=== PATIENT | female | born 1995 | race American Indian/Alaskan Native ===

== ENCOUNTER 2018-11-07 21:19 | Emergency (ER) | payer MEDICAID ==
--- NOTE | 2018-11-07 21:30 | Emergency Department Report ---
Blank Doc - Documentation Documentation: This is a 23-year-old female that presents with left ankle and foot pain s/p f all. This initial assessment/diagnostic orders/clinical plan/treatment(s) is/are subject to change based on patient's health status, clinical progression and re- assessment by fellow clinical providers in the ED. Further treatment and workup at subsequent clinical providers discretion. Patient/guardians urged not to elope from the ED as their condition may be serious if not clinically assessed a nd managed. Initial orders include: 1- Patient sent to [facility] for further evaluation and treatment 2- xray
[2018-11-07 21:31] VITALS: BP 107/62
--- NOTE | 2018-11-07 22:44 | XRay Report ---
PROCEDURE: XR ANKLE 2V LT TECHNIQUE: AP and lateral views of the left ankle HISTORY: left ankle pain s/p fall COMPARISONS: None . FINDINGS: There is no evidence for acute fracture or dislocation. Mild soft tissue swelling laterally is noted. No radiopaque foreign bodies are seen. The ankle mortise is intact. Bony mineralization is normal an d joint spaces are maintained. IMPRESSION: No acute bony abnormality noted. Mild soft tissue swelling laterally. This document is electronically signed by Oriana Pollock MD., November 07 2018 10:42:23 PM ET
--- NOTE | 2018-11-07 23:11 | XRay Report ---
PROCEDURE: XR FOOT 2V LT TECHNIQUE: Left foot radiographs, AP and lateral views. HISTORY: pain s/p fall COMPARISONS: None . FINDINGS: Fracture (s) and/or Dislocation(s): None . Alignment: Normal . Joint space(s): Normal . Soft tissues: Normal . Bone mineralization: Normal . Foreign bodies: None . Calcaneal spurring: None . IMPRESSION: Normal Examination . This document is electronically signed by Paula Garnica DO., November 07 2018 11:09:53 PM ET
== END 2018-11-08 01:00 | disposition left against medical advice (07) ==
LOC: ED 21:19
DX: O9A.212 Injury, poisoning and certain other consequences of external causes complicating pregnancy, second trimester (principal); M25.572 Pain in left ankle and joints of left foot; Z3A.26 26 weeks gestation of pregnancy; W10.9XXA Fall (on) (from) unspecified stairs and steps, initial encounter; Y93.89 Activity, other specified; Y92.89 Other specified places as the place of occurrence of the external cause; Y99.8 Other external cause status
CPT/HCPCS: 99283

== ENCOUNTER 2018-12-15 15:54 | Outpatient (CLI) | payer MEDICAID ==
[2018-12-15 16:22] VITALS: BP 117/58
[2018-12-15] MEDS ORDERED: LACTATED RINGERS 1,000 ML IV ONE (17:14)
[2018-12-15] MEDS ORDERED: LACTATED RINGERS 1,000 ML ONE (17:15)
[2018-12-15 18:48] LABS: Bacteria,Urine 2+ /HPF (Negative); Bilirubin,Urine NEG (Negative); Blood,Urine NEG (Negative); Color,Urine Yellow (Yellow); Mucus,Urine FEW /HPF; Protein,Urine <15 mg/dL mg/dL (Negative); Urobilinogen,Urine < 2.0 mg/dL (<2.0)
== END 2018-12-15 19:18 | disposition home or self-care (01) ==
LOC: TRG 15:54
PROVIDERS: ATTEND Obstetrics & Gynecology
DX: O62.9 Abnormality of forces of labor, unspecified (principal); Z3A.31 31 weeks gestation of pregnancy
CPT/HCPCS: 59025; 81001; 96365; J7120

== ENCOUNTER 2019-01-09 12:53 | Outpatient (CLI) | payer MEDICAID ==
[2019-01-09 14:08] LABS: Hemoglobin 11.6 gm/dl (10.1-14.3); Mean Corpuscular HGB Conc 34 % (30-34); Mean Corpuscular Volume 83 fl (79-97); Platelet Count 204 K/mm3 (140-440); Red Blood Count 4.11 M/mm3 (3.65-5.03); Red Cell Distribution Width 14.7 % (13.2-15.2)
[2019-01-09 14:34] LABS: Alanine Aminotransferase 5 units/L (7-56); Uric Acid 4.7 mg/dL (3.5-7.6)
[2019-01-09 14:58] LABS: Bilirubin,Urine NEG (Negative); Blood,Urine NEG (Negative); Color,Urine Straw (Yellow); Protein,Urine <15 mg/dL mg/dL (Negative); Urobilinogen,Urine < 2.0 mg/dL (<2.0)
[2019-01-09 15:14] VITALS: BP 108/60
[2019-01-09] MEDS ORDERED: TYLENOL PO ONE (15:18)
== END 2019-01-09 16:33 | disposition home or self-care (01) ==
LOC: TRG 12:53
PROVIDERS: ATTEND Obstetrics & Gynecology
DX: O47.03 False labor before 37 completed weeks of gestation, third trimester (principal); Z3A.37 37 weeks gestation of pregnancy
CPT/HCPCS: 36415; 59025; 81001; 82565; 83615; 84450; 84460; 84550; 85027

== ENCOUNTER 2019-01-28 12:37 | Outpatient (CLI) | payer MEDICAID ==
[2019-01-28 12:53] VITALS: BP 105/62
--- NOTE | 2019-01-28 15:10 | Progress Note ---
Assessment and Plan A: at 39 6/7 weeks gestation. Reactive NST. BPP 8/8. Normal MERY. Patient perceived movement during exam. P: Discharge patient home with labor precautions and instructions to perform daily movement counting. Keep follow up appointment at [facility] early this week for BPP and office visit. Technique for daily movement counting discussed with patient. Subjective - Subjective Date of service: 01/28/19 Principal diagnosis: at 39 6/7 weeks gestation Interval history: 23 year old presents with complaint of decreased movement today. Patient denies regular contractions, vaginal bleeding, leaking of fluid, falls, or abdominal trauma or pain. Patient reports: contractions, no loss of fluid, no vaginal bleeding Objective - Vital Signs Vital Signs: Vital Signs - 12hr 01/28/19 01/28/19 12:52 14:25 Temperature 98.4 F Pulse Rate 101 H Respiratory 16 Rate Blood Pressure 105/62 - Exam Narrative Exam: BPP 8/8; reactive NST; normal MERY. Abdomen: Present: normal appearance, soft. Absent: distention, tenderness, guarding, rigidity Uterus: Present: normal, fundal height above umbilicus. Absent: bogginess, tenderness FHR: category 1 Uterine Contraction Monitor Mode: External Cervical Dilatation: 3 Cervical Effacement Percentage: 40 station: -3 Uterine Contraction Pattern: Irregular Uterine Contraction Intensity: Mild Extremities: normal
--- NOTE | 2019-01-28 15:42 | Ultrasound Report ---
US OB BPP wo non-stress, US OB limited INDICATION / CLINICAL INFORMATION: BPP. COMPARISON: None available. FINDINGS: Single, viable intrauterine in cephalic presentation. heartbeat 127. Amniotic fluid volume is within normal limits, with a fluid index of 11 cm. Biophysical profile: tone: 2 movements: 2 breathin Amniotic fluid: 2 Total score: 8 IMPRESSION: 1. Single, viable intrauterine , with biophysical profile of 8, which is normal. Signer Name: Kenji Gutierrez MD Signed: 01/28/2019 3:37 PM Workstation Name: [id number]
== END 2019-01-28 14:42 | disposition home or self-care (01) ==
LOC: TRG 12:37
PROVIDERS: ATTEND Obstetrics & Gynecology
DX: O36.8130 Decreased fetal movements, third trimester, not applicable or unspecified (principal); Z3A.39 39 weeks gestation of pregnancy
CPT/HCPCS: 59025; 76815; 76819

== ENCOUNTER 2019-02-01 14:33 | Outpatient (CLI) | payer MEDICAID ==
[2019-02-01 15:11] VITALS: BP 115/63
== END 2019-02-01 15:37 | disposition home or self-care (01) ==
LOC: TRG 14:33
PROVIDERS: ATTEND Obstetrics & Gynecology
DX: O47.1 False labor at or after 37 completed weeks of gestation (principal); Z3A.40 40 weeks gestation of pregnancy
CPT/HCPCS: 59025

== ENCOUNTER 2019-02-02 03:22 | Inpatient (IN) | payer MEDICAID ==
[2019-02-02] MEDS ORDERED: LACTATED RINGERS 1,000 ML ONE (04:18)
[2019-02-02] MEDS ORDERED: AMPICILLIN/NS 2 GM/100 ML 2 GM/100 ML BAG IV ONE (05:19)
[2019-02-02] MEDS ORDERED: BRETHINE IVP PRN (05:19)
[2019-02-02] MEDS ORDERED: MINERAL OIL PO PRN (05:19)
[2019-02-02] MEDS ORDERED: XYLOCAINE 2% INFILTRATI ONE (05:19)
[2019-02-02] MEDS ORDERED: STADOL IV PRN (05:19)
[2019-02-02] MEDS ORDERED: BRETHINE SUB-Q PRN (05:19)
[2019-02-02] MEDS ORDERED: SUBLIMAZE IV PRN (05:19)
[2019-02-02 05:39] LABS: Hematocrit 34.1 % (30.3-42.9); Hemoglobin 11.3 gm/dl (10.1-14.3); Mean Corpuscular HGB Conc 33 % (30-34); Mean Corpuscular Volume 80 fl (79-97); Platelet Count 208 K/mm3 (140-440); Red Blood Count 4.26 M/mm3 (3.65-5.03); Red Cell Distribution Width 15.6 % (13.2-15.2)
[2019-02-02] MEDS: LACTATED RINGERS 1,000 ML IV SCH ×2 (05:40→09:58)
[2019-02-02] MEDS ORDERED: PITOCin/NS 20 UNIT/1000ML DRIP 20 UNITS/1,000 ML BAG IV SCH (06:00)
[2019-02-02] MEDS ORDERED: PITOCin/NS 30 UNIT/500ML 30 UNITS/500 ML BAG IV SCH ×2 (06:00)
[2019-02-02] MEDS ORDERED: NARCAN 0.4 MG/1 ML IV PRN (06:10)
--- NOTE | 2019-02-02 06:33 | History and Physical Report ---
History of Present Illness Date of examination: 02/02/19 Date of admission: 02/02/2019 Chief complaint: My Water broke this morning at 0230; the fluid was clear. History of present illness: Late transfer into care at 24 weeks, course has been uncomplicated. Past History Past Medical History: no pertinent history Past Surgical History: no surgical history Family/Genetic History: diabetes (father and PGF) Social history: no significant social history, single - Obstetrical History Expected Date of Delivery: 01/29/19 Actual Gestation: 40 Week(s) 4 Day(s) : 2 Para: 1 Hx # Term Pregnancies: 1 Number of Living Children: 1 #2 Gender: Female year: 2[age][birth year] Birthweight: 2.863 kg Method of Delivery: Vaginal Gestational age at delivery: 40 Complications: none Medications and Allergies Allergies Allergy/AdvReac Type Severity Reaction Status Date / Time shrimp Allergy Severe Itching Verified 12/15/18 17:20 Home Medications Medication Instructions Recorded Confirmed Last Taken Type Vit-Fe Fumar-FA [ 1 tab PO DAILY 02/02/19 02/02/19 02/01/19 History Vitamin] Active Meds: Active Medications Butorphanol Tartrate (Stadol) 2 mg IV Q2H PRN PRN Reason: Pain , Severe (7-10) Ephedrine Sulfate (Ephedrine Sulfate) 10 mg IV Q2M PRN PRN Reason: Hypotension Fentanyl (Sublimaze) 100 mcg IV Q2H PRN PRN Reason: Labor Pain Oxytocin/Sodium Chloride (Pitocin/Ns 20 Unit/1000ml Drip) 20 units in 1,000 mls @ 125 mls/hr IV DIRECT PREMA Oxytocin/Sodium Chloride (Pitocin/Ns 30 Unit/500ml) 30 units in 500 mls @ 1 mls/hr IV TITR PREMA; Protocol Oxytocin/Sodium Chloride (Pitocin/Ns 30 Unit/500ml) 30 units in 500 mls @ 2 mls/hr IV TITR PREMA; Protocol Lactated Ringer's (Lactated Ringers) 1,000 mls @ 125 mls/hr IV DIRECT PREMA Last Admin: 02/02/19 05:40 Dose: 125 mls/hr Documented by: Ampicillin Sodium (Ampicillin/Ns 2 Gm/100 Ml) 2 gm in 100 mls @ 100 mls/hr IV ONCE ONE; Protocol Stop: 02/02/19 06:18 Last Admin: 02/02/19 05:41 Dose: 100 mls/hr Documented by: Ampicillin Sodium (Ampicillin/Ns 1 Gm/50 Ml) 1 gm in 50 mls @ 100 mls/hr IV Q4HR PREMA; Protocol Mineral Oil (Mineral Oil) 30 ml PO QHS PRN PRN Reason: Constipation Terbutaline Sulfate (Brethine) 0.25 mg SUB-Q ONCE PRN PRN Reason: Hyperstimulation/Hypertonicity Terbutaline Sulfate (Brethine) 0.25 mg IVP ONCE PRN PRN Reason: Hyperstimulation/Hypertonicity Review of Systems All systems: negative - Vital Signs Vital signs: Vital Signs Temp Resp 98.1 F 18 02/02/19 03:55 02/02/19 03:55 Temp Pulse Resp BP Pulse Ox 98.1 F 68 18 113/62 02/02/19 03:55 02/02/19 05:33 02/02/19 03:55 02/02/19 05:33 - Physical Exam Breasts: Positive: normal Cardiovascular: Regular rate Lungs: Positive: Clear to auscultation, Normal air movement Abdomen: Positive: normal appearance, soft, normal bowel sounds Genitourinary (Female): Positive: normal external genitalia, normal perenium Uterus: Positive: enlarged Anus/Rectum: Positive: normal perianal skin Extremities: Positive: normal - Obstetrical FHR: category 1 Uterine Contraction Monitor Mode: External Cervical Dilatation: 3.5 (Scant amount of clear fluid upon exam) Cervical Effacement Percentage: 70 station: 2 Uterine Contraction Pattern: Irregular Uterine Tone Measurement Phase: Resting Uterine Contraction Intensity: Mild Results Result Diagrams: 02/02/19 04:50 Abnormal lab results 02/02/19 Range/Units 04:50 WBC 11.4 H (4.5-11.0) K/mm3 MCH 27 L (28-32) pg RDW 15.6 H (13.2-15.2) % All other labs normal. Assessment and Plan A: IUP @ 40 4/7 Weeks Category I Tracing SROM GBS Positive P: Admit to L&D per Routine Orders GBS Prophylaxis Pitocin Augmentation
[2019-02-02] MEDS ORDERED: NARCAN 2 MG/2 ML IV PRN (09:04)
--- NOTE | 2019-02-02 09:04 | Anesthesia Consultation ---
Anesthesia Consult and Med Hx Date of service: 02/02/19 - Airway Anesthetic Teeth Evaluation: Good ROM Head & Neck: Adequate Mental/Hyoid Distance: Adequate Mallampati Class: Class I Intubation Access Assessment: Good - Pulmonary Exam CTA: Yes - Cardiac Exam Cardiac Exam: RRR - Pre-Operative Health Status ASA Pre-Surgery Classification: ASA2 Proposed Anesthetic Plan: Epidural - Pulmonary Hx Asthma: No COPD: No Hx Pneumonia: No - Cardiovascular System Hx Hypertension: No - Central Nervous System Hx Seizures: No Hx Psychiatric Problems: No - Endocrine Hx Renal Disease: No Hx End Stage Renal Disease: No Hx Hypothyroidism: No Hx Hyperthyroidism: No - Hematic Hx Anemia: No Hx Sickle Cell Disease: No - Other Systems Hx Alcohol Use: No
[2019-02-02] MEDS ORDERED: MARCAINE 0.25% INFILTRATI ONE (09:08)
[2019-02-02] MEDS ORDERED: AMPICILLIN/NS 1 GM/50 ML 1 GM/50 ML BAG IV SCH (09:20)
[2019-02-02] MEDS ORDERED: ZOFRAN ONE (09:49)
[2019-02-02] MEDS ORDERED: DEXMEDETOMIDINE IV ONE (09:49)
[2019-02-02] MEDS ORDERED: fentaNYL-BUPIV 2 MCG/ML-0.125% 200 MCG/100 ML BAG EPIDURAL SCH (10:30)
[2019-02-02] MEDS ORDERED: BENADRYL ONE (10:38)
[2019-02-02] MEDS ORDERED: TORADOL ONE (10:38)
[2019-02-02] MEDS ORDERED: DILAUDID ONE (10:54)
[2019-02-02] MEDS ORDERED: BENADRYL PO PRN (12:11)
[2019-02-02] MEDS ORDERED: LANSINOH TP PRN (12:11)
[2019-02-02] MEDS ORDERED: PHENERGAN PO PRN (12:11)
[2019-02-02] MEDS ORDERED: ZOFRAN IV PRN (12:11)
[2019-02-02] MEDS ORDERED: NORCO 5/325 PO PRN (12:11)
[2019-02-02] MEDS ORDERED: DULCOLAX PR PRN (12:11)
[2019-02-02] MEDS ORDERED: TYLENOL PO PRN (12:11)
[2019-02-02] MEDS ORDERED: TUCKS PAD TP PRN (12:11)
--- NOTE | 2019-02-02 12:18 | Procedure Note ---
OB Delivery Note - Delivery Date of Delivery: 02/02/19 (11:51) Surgeon: JACEY ANDERSON (BRITTANY) Estimated blood loss: <100cc - Vaginal Delivery presentation: vertex Delivery position: OA Intrapartum events: none Delivery induction: none Delivery augmentation: pitocin Delivery monitor: external FHT, external uterine Route of delivery: (11:51) Delivery placenta: spontaneous (11:57) Delivery cord: 3 umbilical vessels Episiotomy: none Delivery laceration: none Anesthesia: epidural Delivery comments: viable female RICK position over intact perineum at 11:51. Vigorous infant placed skin to skin on mothers abdomen. Delayed cord clamping then cut by FOB with my guidance. Spontaneous enciso delivery of intact placenta at 11:57. FF@U-2. Bleeding scant. No tears or lacerations. EBL 50cc. and mother left in stable condition in L&D. - A at 1 minute: 8 at 5 minutes: 9 Infant Gender: Female (2481 grams, 7lbs 11oz, 19.5")
[2019-02-02] MEDS ORDERED: SODIUM CHLORIDE FLUSH SYRINGE 10 ML IV NR (13:00)
[2019-02-02] MEDS ORDERED: MILK OF MAGNESIA PO PRN (22:00)
--- NOTE | 2019-02-02 23:41 | Post Anesthesia Evaluation ---
- Post Anesthesia Evaluation Patient Participated: Yes Airway Patent: Yes Stable Respiratory Function: Yes Nausea/Vomiting: No Temp > 96.8F: Yes Pain Manageable: Yes Adequeate Hydration: Yes Anesthesia Complications: No Block Receding Appropriately: Yes Patient on Ventilator: No
[2019-02-03 01:20] LABS: Hemoglobin 10.2 gm/dl (10.1-14.3)
[2019-02-03] MEDS: IBUPROFEN PO SCH (08:00)
--- NOTE | 2019-02-03 11:28 | Progress Note ---
Assessment and Plan - Patient Problems (1) Status post normal vaginal delivery Current Visit: Yes Status: Acute Plan to address problem: PPD 1 - stable Continue routine orders Discharge to home today Follow-up at [facility] as needed or in 6 weeks for exam Subjective - Subjective Date of service: 02/03/19 Principal diagnosis: PPD #1; s/p Interval history: see H&P and OB Delivery Procedure Note Patient reports: appetite normal, voiding normally, pain well controlled, amb ulating normally, no dizzy ambulation [place]: doing well Objective - Vital Signs Latest vital signs: Vital Signs Temp Pulse Resp BP BP Pulse Ox 02/03/19 10:16 98.3 F 65 18 111/66 98 02/03/19 00:15 98.6 F 76 18 102/69 02/02/19 21:44 98.8 F 78 18 117/73 98 02/02/19 18:15 98.2 F 83 18 104/47 97 02/02/19 14:20 99.2 F 71 16 110/52 110/52 02/02/19 14:05 97.7 F 02/02/19 13:05 90 111/78 02/02/19 12:34 83 112/58 02/02/19 12:06 83 102/55 02/02/19 12:04 90 89/61 02/02/19 12:00 99.5 F 02/02/19 11:34 89 110/56 Intake and Output 02/02/19 02/03/19 02/03/19 23:59 07:59 15:59 Intake Total 300 Balance 300 Intake: Intake, Free Water 300 Other: # Voids Void 3 - Exam Cardiovascular: Present: Regular rate Lungs: Present: Clear to auscultation Abdomen: Present: normal appearance, soft Vulva: both: normal Uterus: Present: normal, firm, fundal height at umbilicus Extremities: Present: normal Comments: scant lochia
--- NOTE | 2019-02-03 11:30 | Discharge Summary ---
Providers - Providers Date of Admission: 02/02/19 06:10 Date of discharge: 02/03/19 Attending physician: AKIRA GARCIA MD Primary care physician: AKIRA GARCIA MD Hospitalization Reason for admission: active labor, IUP at term Delivery: Episiotomy: none Laceration: none Other procedures: none complications: none Discharge diagnosis: IUP at term delivered [place] baby: female Hospital course: Uncomplicated Condition at discharge: Stable Disposition: [place]-01 TO HOME OR SELFCARE - Discharge Diagnoses (1) Status post normal vaginal delivery Status: Acute Plan - Provider Discharge Summary Activity: routine, no sex for 6 weeks, no heavy lifting 4 weeks, no strenuous exercise Diet: routine Instructions: routine Additional instructions: [] Smoking cessation referral if applicable(refer to patient education folder for contact #) [] Refer to [facility]'s [facility] Booklet Call your doctor immediately for: * Fever > 100.5 * Heavy vaginal bleeding ( >1 pad per hour) * Severe persistent headache * Shortness of breath * Reddened, hot, painful area to leg or breast * Drainage or odor from incision. * Keep incision clean and dry at all times and follow doctor's instructions regarding bathing/showering - Follow up plan Follow up: AKIRA GARCIA MD [Primary Care Provider] - 6 Weeks (Follow up at [facility] as needed or in 6 weeks for exam)
[2019-02-04] MEDS: IBUPROFEN PO SCH ×3 (07:32→14:52)
[2019-02-04 17:53] VITALS: BP 109/62
== END 2019-02-04 15:15 | disposition home or self-care (01) | DRG 775 ==
LOC: TRG 03:22 → LD 06:10 → TRG 10:00 → OB 14:34
PROVIDERS: ADMIT Obstetrics & Gynecology; ATTEND Obstetrics & Gynecology
PROC: 10E0XZZ Delivery of Products of Conception, External Approach (ICD-10-PCS; principal; 2019-02-02)
PROC: 3E0R3BZ Introduction of Anesthetic Agent into Spinal Canal, Percutaneous Approach (ICD-10-PCS; 2019-02-02)
PROC: 00HU33Z Insertion of Infusion Device into Spinal Canal, Percutaneous Approach (ICD-10-PCS; 2019-02-02)
DX: O99.824 Streptococcus B carrier state complicating childbirth (principal); Z3A.40 40 weeks gestation of pregnancy; Z37.0 Single live birth; Z82.49 Family history of ischemic heart disease and other diseases of the circulatory system; Z88.8 Allergy status to other drugs, medicaments and biological substances
CPT/HCPCS: 36415; 85014; 85018; 85027; 86592; 86850; 86900; 86901; G0378; J0290; J1170; J1200; J1885; J2405; J2590; J3010; J3490; J7120